=== PATIENT | female | born 1995 | race Caucasian/White ===

== ENCOUNTER 2019-12-04 19:05 | Emergency (ER) | payer OTHER ==
[~2019-12-04] VITALS: Ht 165.1 cm; Wt 54.4 kg
[2019-12-04 19:26] VITALS: BP 128/75
--- NOTE | 2019-12-04 19:30 | NUR ---
PT TAKEN TO BED 3
--- NOTE | 2019-12-04 19:36 | NUR ---
Dr. Vasquez examining patient.
--- NOTE | 2019-12-04 19:46 | NUR ---
PT C/O HEADACHE X1 WEEK. STATES SHES BEEN HYPOTENSIVE TODAY AT HOME. BP 113/67 @ THIS TIME. ALL OTHER VSS. PERRL. NO WEAKNESS/FACIAL DROOP NOTED. RADIAL PULSES PALPABLE BILATERALLY. SKIN WARM, DRY, INTACT. PMH-NONE MEDS TAKEN- APAP WITHOUT EFFECT. ALLERGIES- CODEINE LMP- 11/29/2019
[2019-12-04] MEDS ORDERED: KETOROLAC 60 MG/2 ML VIAL IM ONE (19:50)
[2019-12-04 20:31] VITALS: BP 128/75
== END 2019-12-04 20:31 | disposition home or self-care (01) ==
LOC: MED 19:05
DX: G44.209 Tension-type headache, unspecified, not intractable (principal); Z88.5 Allergy status to narcotic agent
CPT/HCPCS: 96372; 99283; J1885